=== PATIENT | female | born 1965 | race African-American/Black ===

== ENCOUNTER 2016-10-15 20:23 | Emergency (ER) | payer MEDICAID ==
[~2016-10-15] VITALS: Ht 170.2 cm; Wt 84.0 kg
[~2016-10-15 20:23] MED LIST: IBUP-1510 PO
[2016-10-15] MEDS ORDERED: HYDROCODONE/ACETAMINOPHEN 10/325MG TABLET PO ONE (23:15)
[2016-10-15 23:55] LABS: BASOPHILS % 0.6 % (0.0-2.0); EOSINOPHILS % 0.8 % (0.0-5.0); HEMATOCRIT. 39.6 % (36.0-48.0); HEMOGLOBIN. 13.9 g/dL (12.0-16.0); LYMPHOCYTES % 30.8 % (20.0-50.0); MEAN CORPUSCULAR HEMOGLOBIN 37.3 pg (28.0-32.0); MEAN CORPUSCULAR VOLUME 106.1 fL (81.0-99.0); MEAN PLATELET VOLUME 8.8 fl (7.4-10.4); MONOCYTES % 8.1 % (2.0-8.0); NEUTROPHILS % 59.7 % (40.0-76.0); PLATELET 97 x1000/uL (130-400); RED BLOOD CELL COUNT 3.73 mill/uL (4.2-5.4); RED CELL DISTRIBUTION WIDTH 15.2 % (11.6-14.6)
[2016-10-15 23:57] LABS: CHLORIDE 106 mEq/L (98-107)
[2016-10-16 00:03] LABS: CARBON DIOXIDE 26 mEq/L (21-32)
[2016-10-16 02:24] VITALS: BP 108/62
== END 2016-10-16 02:27 | disposition home or self-care (01) ==
LOC: ER 23:22
DX: L03.116 Cellulitis of left lower limb (principal); F17.200 Nicotine dependence, unspecified, uncomplicated; I10 Essential (primary) hypertension
CPT/HCPCS: 36415; 80048; 85025; 93971; 99285

== ENCOUNTER 2017-05-22 18:14 | Emergency (ER) | payer MEDICAID, MEDICARE ==
[~2017-05-22] VITALS: Ht 170.2 cm; Wt 84.0 kg
[~2017-05-22 18:14] MED LIST changes: -IBUP-1510 PO; +IBUP-2030 PO
[2017-05-22] MEDS ORDERED: HYDROCODONE/ACETAMINOPHEN 5/325MG TABLET PO ONE (21:45)
[2017-05-22 23:52] VITALS: BP 166/80
== END 2017-05-22 23:58 | disposition home or self-care (01) ==
LOC: ER 20:43
DX: I87.2 Venous insufficiency (chronic) (peripheral) (principal); J40 Bronchitis, not specified as acute or chronic; M79.641 Pain in right hand; M79.89 Other specified soft tissue disorders; F17.200 Nicotine dependence, unspecified, uncomplicated
CPT/HCPCS: 29125; 71045; 73090; 73110; 73130; 99284

== ENCOUNTER 2017-06-02 17:19 | Emergency (ER) | payer MEDICARE ==
[~2017-06-02] VITALS: Ht 170.2 cm; Wt 84.0 kg
[2017-06-02] MEDS ORDERED: IBUPROFEN 600MG TABLET PO ONE (21:30)
[2017-06-02] MEDS ORDERED: ACETAMINOPHEN 500MG TABLET PO ONE (21:30)
[2017-06-02 22:55] VITALS: BP 145/76
== END 2017-06-02 23:04 | disposition home or self-care (01) ==
LOC: ER 18:20
DX: S63.91XA Sprain of unspecified part of right wrist and hand, initial encounter (principal); F17.200 Nicotine dependence, unspecified, uncomplicated; W01.0XXA Fall on same level from slipping, tripping and stumbling without subsequent striking against object, initial encounter; Y93.89 Activity, other specified; Y99.8 Other external cause status; Y92.89 Other specified places as the place of occurrence of the external cause
CPT/HCPCS: 29125; 73130; 99284